=== PATIENT | male | born 1945 | race Caucasian/White ===

== ENCOUNTER 2018-02-07 15:46 | Inpatient (IN) | payer MEDICARE, OTHER ==
[~2018-02-07 15:46] MED LIST: ISOVUE-370 76%-LOCM 1 ML ONE
--- NOTE | 2018-02-07 16:58 | CT ---
BRAIN CT WITHOUT IV CONTRAST: 02/07/18 HISTORY: 73-year-old male with history of intermittent confusion for one hour. There is some age related atrophy. No focal mass or midline shift. No intra or extra-axial hemorrhage . Sinuses and mastoids are clear of acute process with some chronic mucosal changes in the ethmoid bu lla. IMPRESSION: Mild ethmoid sinus mucosal changes. No mass, bleed or other significant acute intracranial abnormalit y. POS: [facility]
[2018-02-07 17:08] LABS: Hemoglobin 13.7 g/dL (14.0-18.0); Mean Corpuscular HGB CONC 32.2 g/dL (32.0-36.0); Mean Corpuscular Hemoglobin 30.4 pg (27.0-31.0); Mean Corpuscular Volume 94.6 fL (78.0-98.0); Mean Platelet Volume 7.9 fL (7.4-10.4); Platelet Count 223 thou/uL (130-400); RBC Distribution Width 11.6 % (11.5-14.5); Red Blood Cell (RBC) Count 4.49 mill/uL (4.70-6.10); White Blood Cell (WBC) Count 17.9 thou/uL (4.8-10.8)
[2018-02-07 17:28] LABS: ALT (SGPT) 15 U/L (8-55); AST (SGOT) 17 U/L (5-34); Albumin 4.1 g/dL (3.4-4.8); Alkaline Phosphatase 46 U/L (40-150); Anion Gap 12 mmol/L (10-20); BUN (Urea Nitrogen) 36 mg/dL (8.4-25.7); Band 29 % (5-11); Bilirubin, Total 0.6 mg/dL (0.2-1.2); CK (CPK) 175 U/L (30-200); Calc. Creatinine Clearance 0 mL/min (70-130); Calcium 9.6 mg/dL (7.8-10.44); Carbon Dioxide 27 mmol/L (23-31); Chloride 102 mmol/L (98-107); Eosinophils 1 % (0-10); Estimated GFR-MDRD 38; Globulin 2.9 g/dL (2.4-3.5); Glucose 99 mg/dL (83-110); Lymphocytes 3 % (21-51); MDiff Complete? YES; Monocytes 4 % (0-10); Neutrophil 63 % (42-75); PLT Morphology Comment Appears Adequate; Potassium 3.9 mmol/L (3.5-5.1); Sodium 137 mmol/L (136-145)
[2018-02-07 17:33] LABS: CKMB 1.8 ng/mL (0-6.6); Troponin I Less than 0.010 ng/mL (< 0.028)
--- NOTE | 2018-02-07 18:13 | RAD ---
CHEST PA AND LATERAL: Date: 02/07/18 HISTORY: 73-year-old male with history of dyspnea, intermittent confusion for 1 hour. COMPARISON: 06/30/03. FINDINGS: Minimal increased linear and interstitial markings are noted bilaterally. There appears to be some ri ght-sided pleural thickening with possible associated healed rib fractures. Heart size is within norm al limits. No confluent pneumonia. IMPRESSION: Some right-sided focal pleural thickening with possible associated healed rib fractures. Increased li near and interstitial markings bilaterally, including the infrahilar regions, more prominent than on the prior study, but appearance does not suggest that of acute confluent pneumonia or overt edema. No other acute process. Surgical clips in the left axilla. POS: [facility]
[2018-02-07] MEDS ORDERED: Dexamethasone 4 mg/ml Vial ONE (18:44)
--- NOTE | 2018-02-07 19:23 | CT ---
CT ANGIOGRAM CHEST WITH IV CONTRAST AND 3D RECONSTRUCTIONS: 02/07/18 HISTORY: Intense coughing. Coughing episodes lead to disorientation and hypoxia. COMPARISON: None available. FINDINGS: The ascending thoracic aorta is mildly ectatic without aneurysmal dilatation. There is no evidence of an aortic dissection. Minimal atherosclerotic plaque is seen in the descending thoracic aorta as wel l as involving the abdominal aorta. There is suboptimal opacification of the pulmonary arteries, but no definitive filling defect is seen to suggest a pulmonary embolus. There is consolidation at the right lung base with adjacent reticulonodular densities. Findings could be related to either pneumonia or aspiration pneumonitis. There is mild bronchiectasis seen in the l ower lobes. There is minimal linear scarring versus atelectasis in the lingula. The left lung is otherwise clear. Remote right sided rib fractures are visualized. A 12 mm hypodense lesion is seen within the lateral aspect right hepatic lobe which is difficult to f urther characterize on this exam. The spleen, visualized portions of the pancreas, and bilateral kidneys demonstrate a grossly normal C T appearance for arterial phase of imaging. There is a very small hiatal hernia present. There is no evidence of lymphadenopathy. IMPRESSION: 1. Consolidation and reticulonodular densities in the right lower lobe worrisome for pneumonia o r aspiration pneumonitis. 2. Mild bronchiectasis in the lower lobes with small amount of debris seen in a few of the bronc hi in the right lower lobe. Followup to complete resolution is recommended. This area of consolidatio n is not well appreciated on chest x-ray obtained prior to this exam. 3. No CT evidence of a pulmonary embolus. 4. Remote right sided rib fractures. 5. Too small to characterize hypodense lesion lateral aspect right hepatic lobe. 6. Minimal pericardial thickening versus pericardial fluid anteriorly. POS: [facility]
[2018-02-07] MEDS ORDERED: Acetaminophen 500 MG TAB ONE (19:53)
[2018-02-07] MEDS ORDERED: Ondansetron ODT 4 MG TAB SL PRN (20:42)
[2018-02-07] MEDS ORDERED: Ondansetron PF 4 MG/2 ML Vial IVP PRN (20:42)
[2018-02-07] MEDS ORDERED: Dexamethasone 10 MG/ML VIAL SLOW IVP SCH (21:00)
[2018-02-07] MEDS ORDERED: Cepastat Lozenges 1 LOZ PO PRN (21:18)
[2018-02-07] MEDS ORDERED: Diabetic Tussin 200 MG/10 ML UDCUP PO PRN (21:18)
[2018-02-07] MEDS ORDERED: cloNIDine 0.1 MG TAB PO PRN (21:18)
[2018-02-07] MEDS ORDERED: Acetaminophen 325 MG TAB PO PRN (21:18)
[2018-02-07] MEDS ORDERED: Calcium Carbonate 500 MG ChewTAB PO PRN (21:18)
[2018-02-07] MEDS ORDERED: hydrALAZINE 20 MG/ML VIAL SLOW IVP PRN (21:18)
[2018-02-07] MEDS ORDERED: Ondansetron ODT 4 MG TAB PO PRN (21:18)
[2018-02-07] MEDS ORDERED: Benzonatate 100 MG CAP PO PRN (21:18)
[2018-02-07] MEDS: Sodium Chloride 0.9% 1,000 ML IV SCH ×4 (21:33→21:45)
[2018-02-07] MEDS ORDERED: Heparin 5,000 UNITS/ML VIAL SC SCH (21:45)
--- NOTE | 2018-02-08 03:12 | HP ---
PRIMARY CARE PHYSICIAN: Dr. Chandler Trevino at [facility]. CHIEF COMPLAINT: Cough and low grade fever. HISTORY OF PRESENT ILLNESS: Mr. Burns is a pleasant 73-year-old gentleman who has a history of hypert ension and hyperlipidemia. He was in his usual state of health until about 5 weeks ago. He says he has developed a chronic cough. He says it was primarily clear sputum until Sunday. He started havin g some yellowish and green sputum production as well and he says that he went to see his primary care physician on Sunday. They did an x-ray and said it looked clear and had prescribed some steroids an d nebulizer treatments or albuterol. It did not help and he says that the coughing has gotten so bad that he will have these coughing fits and then yesterday he was driving and he got disoriented after the coughing fit and then today he had another episode of severe coughing and he says that he got di soriented again. He was hearing the phone, but did not really know what the phone was until it rang a third time. He also had a low grade temperature, but no pains in his chest. He denied feeling nate rt of breath. He says his appetite was good up until today. No nausea, but he did have some" projec tile like vomiting" on Sunday and he does note some shortness of breath when he talks. He denies a ny leg pain or leg swelling, no PND, no orthopnea. Generally he is fairly active without any difficu lty. REVIEW OF SYSTEMS: All systems were reviewed and are negative except for that mentioned in the histo ry of present illness. PAST MEDICAL HISTORY: Significant for hypertension, hyperlipidemia, and coronary artery disease, whcameron leiva was diagnosed at the [facility]. He said he had a cardiac catheterization and had 30% blockage i n one of his arteries. PAST SURGICAL HISTORY: He has had 3 melanomas removed basal cell carcinomas removed and squamous jefferson l carcinoma. The cardiac catheterization. ALLERGIES: He says he is allergic to one type of surgical suture. SOCIAL HISTORY: He is a nonsmoker, nondrinker. He is . He has a fiancee currently. He has 2 children. CODE STATUS: FULL CODE. FAMILY HISTORY: Significant for heart failure. MEDICATIONS: Include amlodipine 5 mg daily, albuterol inhaler, aspirin 81 mg a day, atorvastatin 40 mg daily, calcium plus vitamin D, CoQ10 200 mg daily, finasteride 5 mg daily, prednisone 20 mg 2 tabl ets a day, TriCor 145 mg daily. He is no longer taking sildenafil and lisinopril. PHYSICAL EXAMINATION: GENERAL: He is alert and oriented. He appears to be in no acute distress. He is well-developed and well-nourished. VITAL SIGNS: Blood pressure was 121/55, heart rate 88, respiratory rate is 17, temperature is 99. HEENT: His pupils are equal, round, and reactive. Extraocular muscles are intact. His sclerae are anicteric. Throat: There is no erythema, no exudates. NECK: No adenopathy, no bruits. LUNGS: He has got significant rales and some rhonchi in the right mid to lower lung miles, some sca ttered wheezing throughout, no rhonchi. CARDIOVASCULAR: He has a normal S1, S2. I do not appreciate an S3 or S4. He did have a grade 2/6 s ystolic murmur to the base. No gallops. ABDOMEN: Obese, it is soft. He has a scar in the right lower quadrant. He appears to have a slight ventral hernia in the right upper quadrant, which is easily were reducible. Normal bowel sounds. N o organomegaly. EXTREMITIES: He has got trace edema in the calves, but no calf tenderness. No significant joint eff usion or redness. Palpable dorsalis pedis pulses. NEUROLOGIC: His cranial nerves are intact. Muscle strength is intact in the upper and lower extremi ties. SKIN AND INTEGUMENT: He has got multiple oval patches on the abdomen and upper extremities, which we re slightly hyperkeratotic, but with normal pigmentation. Otherwise, no other skin lesions. On lab results, he had a chest x-ray and which by my reading showed some pleural based thickening in the right mid lobe and some hazy possible patchy infiltrates bilaterally. Also had a CT scan of the brain, which did not show any significant abnormalities and this is also both by my reading. He had an EKG which was sinus rhythm, the rate was 87. He has some voltage criteria for LVH with some repol arization abnormality. This is also by my reading. On the lab results, white blood cell count was 17.9, hemoglobin 13.7, hematocrit is 42.5, platelet co unt was 233. D-dimer is 1.15. His sodium was 137, potassium 3.9, chloride is 102, CO2 is 27, BUN of 36, creatinine is 1.75, glucose was 99. ASSESSMENT AND PLAN: This is a pleasant 73-year-old gentleman that presents with cough and fever and elevated white count. Radiographic evidence and clinical evidence of pneumonia. So therefore: 1. Community-acquired pneumonia with sepsis. He has already been started on IV antibiotics. We babita l continue Levaquin and some gentle hydration. Blood cultures should have been done from the ER if n ot these will be obtained and we will repeat his white blood cell count in the a.m. Supplemental oxyg en as needed and continue his albuterol nebs as needed. 2. Sepsis. This is as above. He meets sepsis criteria with an elevated white count and fever. 3. Hypertension. We will continue amlodipine and place him on p.r.n. hydralazine. 4. Chronic kidney disease, stage 3. This was not mentioned in the past medical history, but he does have a history of chronic kidney disease, stage 3. We will just continue to trend his creatinine th rough the hospital stay, repeat that through the hospital stay and he will also be placed on deep neymar ous thrombosis prophylaxis.
[2018-02-08 06:26] LABS: Band 13 % (5-11); Hemoglobin 13.2 g/dL (14.0-18.0); Lymphocytes 8 % (21-51); MDiff Complete? YES; Mean Corpuscular HGB CONC 32.2 g/dL (32.0-36.0); Mean Corpuscular Hemoglobin 32.2 pg (27.0-31.0); Mean Platelet Volume 8.2 fL (7.4-10.4); Monocytes 7 % (0-10); Neutrophil 72 % (42-75); Platelet Count 196 thou/uL (130-400); RBC Distribution Width 11.7 % (11.5-14.5); Red Blood Cell (RBC) Count 4.09 mill/uL (4.70-6.10)
[2018-02-08 06:42] LABS: BUN (Urea Nitrogen) 34 mg/dL (8.4-25.7); Calc. Creatinine Clearance 56 mL/min (70-130); Calcium 8.9 mg/dL (7.8-10.44); Carbon Dioxide 16 mmol/L (23-31); Chloride 108 mmol/L (98-107); Estimated GFR-MDRD 41; Glucose 116 mg/dL (83-110); Potassium 4.4 mmol/L (3.5-5.1); Sodium 136 mmol/L (136-145)
[2018-02-08 07:21] LABS: Anion Gap 16 mmol/L (10-20)
[2018-02-08] MEDS: Heparin 5,000 UNITS/ML VIAL SC SCH ×3 (07:55→19:36)
[2018-02-08] MEDS ORDERED: predniSONE 20 MG TAB PO SCH (08:00)
[2018-02-08] MEDS ORDERED: Fenofibrate Nanocrystallized 145 MG TAB PO SCH (09:00)
[2018-02-08] MEDS ORDERED: Aspirin 81 mg Enteric Coated Tablet PO SCH (09:00)
[2018-02-08] MEDS ORDERED: Finasteride 5 MG TAB PO SCH (09:00)
[2018-02-08] MEDS ORDERED: Amlodipine 5 MG TAB PO SCH (09:00)
[2018-02-08] MEDS: Sodium Chloride 0.9% 1,000 ML IV SCH (10:40)
--- NOTE | 2018-02-08 12:51 | CON ---
DATE OF CONSULTATION: 02/08/2018 CONSULTING PHYSICIAN: Hospitalist . REASON FOR CONSULTATION: Pneumonia. 50 minutes time was spent with consultation with greater than 50% of the time spent with the patient or immediately available, reviewing records and on the patient's floor in the hospital. 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 He saw his primary care physician earlier in the week and has been treated for bronchitis with steroids and inhaler. He came to the ER with lo w-grade fever and increasing shortness of breath and cough. He underwent a chest x-ray, which was ne gative, but then underwent a CT scan of the chest, which showed a right lower lobe infiltrate that wa s not seen on chest x-ray. PAST MEDICAL HISTORY: 1. Melanoma. 2. Hypertension. 3. Hyperlipidemia. 4. Minimal coronary artery disease. 5. Previous chest trauma with collapsed lung that did not require chest tube placement. PAST SURGICAL HISTORY: Three melanoma removals. Also had a cardiac catheterization done at the [facility]. ALLERGIES: He is allergic to A TYPE OF SURGICAL SUTURE, but is not allergic to any medications. SOCIAL HISTORY: Nonsmoker, for the past 2 years, has 2 children, one in [place] and one in [facility]. FAMILY MEDICAL HISTORY: Remarkable for heart failure. MEDICATIONS PRIOR TO ADMISSION: Amlodipine, albuterol, atorvastatin, calcium chloride, Coenzyme Q10, finasteride, prednisone, Tricor. REVIEW OF SYSTEMS: Denies diabetes. No fever except for what has happened in the last 24 hours. No previous history of pulmonary problems other than chest trauma. No cardiovascular issues other than the hypertension. He does have chronic kidney disease, but apparently it is not as high grade as it was once thought to be. PHYSICAL EXAMINATION: VITAL SIGNS: Temperature 98.0, pulse 77, respirations 20, O2 saturation 92% on room air, blood press ure 122/63. NEUROLOGIC: He is awake, alert, oriented and in no distress. HEENT: Pupils react. Oropharynx clear. NECK: No JVD. LUNGS: He has crackles in the right base with egophony. Left side is clear. CARDIAC: S1, S2 regular. ABDOMEN: Soft, nontender, nondistended. BACK: Shows a surgical scar in the upper thoracic area. Multiple seborrheic keratoses. EXTREMITIES: No clubbing, cyanosis or edema. LABORATORY DATA: White blood cell count 16, hematocrit 41, platelet count 196,000. D-dimer 1.1. So dium 136, potassium 4.4, chloride 108, CO2 16, BUN 34, creatinine 1.6, glucose 116. CT -- I personal ly reviewed the scan, it showed the right lower lobe infiltrate. ASSESSMENT: 1. Community-acquired pneumonia. 2. Some mild bronchiectasis in the area of pneumonia. PLAN: Agree with treatment with the IV Levaquin. I think the steroids are equivocal and could proba alexandro be discontinued soon. I agree with hydration. If the patient is doing well tomorrow, he can pro bably go home if the cultures do not show anything weird. He needs a followup CT scan in about 4 wee ks as the current pneumonia cannot be seen by chest radiography. The reason for the CT scan is to as sess for resolution.
[2018-02-08 14:45] VITALS: BMI 31.4
[2018-02-08] MEDS ORDERED: Prevnar 13-Val Conj/PF 0.5 ML SYRINGE IM ONE (15:00)
--- NOTE | 2018-02-08 15:10 | PDOC.PN ---
- Subjective Encounter Start Date: 02/08/18 Encounter Start Time: 15:08 Mr. Burns was seen today in follow-up of Pneumonia. He is feeling much better. He is still coughing a bit. - Objective Resuscitation Status: Resuscitation Status FULL:Full Resuscitation MAR Reviewed: Yes Vital Signs & Weight: Vital Signs (12 hours) Temp Pulse Resp BP Pulse Ox 02/08/18 12:38 77 18 94 L 02/08/18 11:04 98.0 F 77 20 122/63 92 L 02/08/18 08:00 94 L 02/08/18 07:55 89 02/08/18 07:30 98.1 F 89 20 114/67 94 L 02/08/18 06:19 73 16 95 02/08/18 04:00 98.1 F 70 20 106/60 93 L Weight Weight 224 lb 13.944 oz I&O: 02/07/18 02/08/18 02/09/18 06:59 06:59 06:59 Intake Total 850 Balance 850 Result Diagrams: 02/08/18 04:38 02/08/18 04:38 Phys Exam - Physical Examination HEENT: PERRLA, sclera anicteric Respiratory: wheezing present + wheezing and rhonchi bilaterally, and rales at hte mid right lung field. Cardiovascular: RRR, no rub, gallop 2/6 systolic murmur Gastrointestinal: soft, non-tender, no distention, positive bowel sounds Musculoskeletal: no edema, pulses present Dx/Plan (1) Community acquired pneumonia Code(s): J18.9 - PNEUMONIA, UNSPECIFIED ORGANISM Status: Acute (2) Sepsis Code(s): A41.9 - SEPSIS, UNSPECIFIED ORGANISM Status: Acute (3) Hypertension Code(s): I10 - ESSENTIAL (PRIMARY) HYPERTENSION Status: Chronic (4) Chronic kidney disease, stage 3 Code(s): N18.3 - CHRONIC KIDNEY DISEASE, STAGE 3 (MODERATE) Status: Chronic - Plan * Pneumonia with sepsis- Continue Levaquin- he is clinically improving. will continue to monitor his CBC * HTN- blood pressure is controlled * Chronic kidney disease stage 3- stable * Abnormal CT scan of chest- follow-up with Dr. Chacon as Outpatient * If he has continued improvement he likely can be discharged home tomorrow.
[2018-02-09 02:13] VITALS: TEMP 97.8
[2018-02-09] MEDS ORDERED: Acetaminophen 325 MG TAB PO PRN (03:56)
[2018-02-09] MEDS ORDERED: cloNIDine 0.1 MG TAB PO PRN (03:57)
[2018-02-09] MEDS ORDERED: Benzonatate 100 MG CAP PO PRN (03:57)
[2018-02-09] MEDS ORDERED: Cepastat Lozenges 1 LOZ PO PRN (03:57)
[2018-02-09] MEDS ORDERED: Calcium Carbonate 500 MG ChewTAB PO PRN (03:57)
[2018-02-09] MEDS ORDERED: Diabetic Tussin 200 MG/10 ML UDCUP PO PRN (03:58)
[2018-02-09] MEDS ORDERED: hydrALAZINE 20 MG/ML VIAL SLOW IVP PRN (03:58)
[2018-02-09] MEDS ORDERED: Ondansetron ODT 4 MG TAB PO PRN (03:59)
[2018-02-09 05:11] LABS: Anion Gap 11 mmol/L (10-20); BUN (Urea Nitrogen) 37 mg/dL (8.4-25.7); Calc. Creatinine Clearance 57 mL/min (70-130); Carbon Dioxide 24 mmol/L (23-31); Chloride 107 mmol/L (98-107); Estimated GFR-MDRD 42; Glucose 102 mg/dL (83-110); Potassium 3.5 mmol/L (3.5-5.1); Sodium 138 mmol/L (136-145)
[2018-02-09 05:42] LABS: Band 15 % (5-11); Hemoglobin 11.3 g/dL (14.0-18.0); Lymphocytes 17 % (21-51); MDiff Complete? YES; Mean Corpuscular HGB CONC 33.1 g/dL (32.0-36.0); Mean Corpuscular Hemoglobin 31.2 pg (27.0-31.0); Mean Corpuscular Volume 94.3 fL (78.0-98.0); Mean Platelet Volume 7.8 fL (7.4-10.4); Monocytes 5 % (0-10); Neutrophil 63 % (42-75); Platelet Count 189 thou/uL (130-400); RBC Distribution Width 11.5 % (11.5-14.5); Red Blood Cell (RBC) Count 3.62 mill/uL (4.70-6.10); White Blood Cell (WBC) Count 13.8 thou/uL (4.8-10.8)
[2018-02-09 07:42] VITALS: BP 119/71
[2018-02-09] MEDS ORDERED: predniSONE 20 MG TAB PO SCH (08:00)
[2018-02-09] MEDS: Heparin 5,000 UNITS/ML VIAL SC SCH ×2 (08:22→15:06)
[2018-02-09] MEDS ORDERED: Finasteride 5 MG TAB PO SCH (09:00)
[2018-02-09] MEDS ORDERED: Aspirin 81 mg Enteric Coated Tablet PO SCH (09:00)
[2018-02-09] MEDS ORDERED: Amlodipine 5 MG TAB PO SCH (09:00)
[2018-02-09] MEDS ORDERED: Fenofibrate Nanocrystallized 145 MG TAB PO SCH (09:00)
--- NOTE | 2018-02-09 11:48 | PRG ---
DATE OF SERVICE: 02/09/2018 SUBJECTIVE: Mr. Burns feels better. He had no acute complaints. PHYSICAL EXAMINATION: VITAL SIGNS: Temperature is 97.8, pulse 80, respirations 18, O2 sat 94%, blood pressure 119/71. HEENT: Unremarkable. NECK: No JVD. LUNGS: He has a few inspiratory crackles in the right base; left side is clear. CARDIAC: S1 and S2, regular. ABDOMEN: Soft. EXTREMITIES: No edema. ASSESSMENT: Right lower lobe pneumonia. RECOMMENDATION: I think it would be okay to go ahead and switch him over to oral antibiotics and dis charge him to home. I would go ahead and stop the prednisone as he seems to be having some hallucina tions at night as a result of that. He can follow up in the office with me in 1 month. He will need a CT scan at followup, as his pneumonia was not visualized well on plain chest x-ray.
== END 2018-02-09 15:43 | disposition home or self-care (01) | DRG 871 ==
LOC: ERS 15:46 → T4-A 18:31 → UNDODISIN 02-08 13:47
PROVIDERS: ADMIT Internal Medicine; ATTEND Internal Medicine
DX: A41.9 Sepsis, unspecified organism (principal); J18.9 Pneumonia, unspecified organism; J47.0 Bronchiectasis with acute lower respiratory infection; I12.9 Hypertensive chronic kidney disease with stage 1 through stage 4 chronic kidney disease, or unspecified chronic kidney disease; N18.3 Chronic kidney disease, stage 3 (moderate); I25.10 Atherosclerotic heart disease of native coronary artery without angina pectoris; E78.5 Hyperlipidemia, unspecified; Z85.820 Personal history of malignant melanoma of skin
CPT/HCPCS: 36415; 36416; 70450; 71046; 71275; 80048; 80053; 82553; 83605; 83690; 83880; 84484; 85025; 85379; 87040; 87804; 93005; 94640; 96365; 96375; J1100; J1644; J1956; J7506; J7620